=== PATIENT | female | born 1965 | race African-American/Black ===

== ENCOUNTER 2017-12-20 13:29 | Emergency (ER) | payer BC ==
[2017-12-20 13:41] VITALS: BP 185/92; PULSE 64; TEMP 98.5; BMI 36.0
--- NOTE | 2017-12-20 14:44 | PDOC ---
History of Present Illness - General Chief Complaint: Back Pain Stated Complaint: LEG PAIN Time Seen by Provider: 12/20/17 14:30 History Source: Patient Exam Limitations: No Limitations - History of Present Illness Initial Comments: CHIEF COMPLAINT: 52 y/o female c/o right low back pain radiating down right leg x 1 week. 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 She does not recall a specific incident which caused her back to hurt. She denies fall. She hasn't taken anything for the pain. She denies saddle anesthesia, bowel/bladder incontinence, numbness/tingling in LEs. Vital signs on arrival are notable for BP of 185/92. REVIEW OF SYSTEMS: GENERAL/CONSTITUTIONAL: Subjective fever/chills. No weakness. No weight change. HEAD, EYES, EARS, NOSE AND THROAT: No change in vision. No ear pain or discharge. No sore throat. CARDIOVASCULAR: No chest pain or shortness of breath. RESPIRATORY: No cough, wheezing, or hemoptysis. GASTROINTESTINAL: See history of present illness. GENITOURINARY: No dysuria, frequency, or change in urination. MUSCULOSKELETAL: No joint or muscle swelling or pain. No neck or back pain. SKIN: No rash or easy bruising. NEUROLOGIC: No headache, vertigo, loss of consciousness, or loss of sensation. PHYSICAL EXAM: GENERAL: The patient is awake, alert, and fully oriented, in no acute distress. HEAD: Normal with no signs of trauma. ENT: Pupils equal, round and reactive to light, extraocular movements intact, sclera anicteric, conjunctiva clear. Neck supple. LUNGS: Clear to auscultation bilaterally. Normal excursion. No respiratory distress or use of accessory muscles. CV: RRR, S1/S2, no MRG. Cap refill < 2 sec. ABDOMEN: Soft, non-distended, non-tender even to deep palpation, no hepatomegaly or splenomegaly, no masses. BACK: No midline lumbar spine TTP or step offs. Pain with palpation of right gluteal muscles. EXTREMITIES: Normal range of motion, no edema. NEUROLOGICAL: Normal speech, normal gait. CN II-XII grossly intact. No saddle anesthesia. Motor and sensory intact in affected leg. SKIN: Warm, dry, normal turgor, no rashes or lesions noted. Past History - Past Medical History Home Medications: Ambulatory Orders NK [No Known Home Medication] 12/20/17 COPD: No - Immunization History Immunization Up to Date: Yes - Suicide/Smoking/Psychosocial Hx Smoking History: Never smoked Hx Alcohol Use: No Drug/Substance Use Hx: No Substance Use Type: None *Physical Exam - Vital Signs Last Vital Signs Temp Pulse Resp BP Pulse Ox 98.5 F 64 16 185/92 H 99 12/20/17 13:37 12/20/17 13:37 12/20/17 13:37 12/20/17 13:37 12/20/17 13:37 Medical Decision Making - Medical Decision Making A/P: 52 y/o female with right sided sciatica. Will give her IM toradol in the ER. Showed her stretching exercises to perform 5 times per day, suggested motrin, heating pad and massage. The patient verbalizes understanding of all instructions, has no further questions and is awaiting discharge. *DC/Admit/Observation/Transfer Diagnosis at time of Disposition: Low back pain with sciatica Qualifiers: Chronicity: acute Back pain laterality: right Sciatica laterality: sciatica of right side Qualified Code(s): M54.41 - Lumbago with sciatica, right side - Discharge Dispostion Disposition: HOME Condition at time of disposition: Good - Referrals - Patient Instructions Printed Discharge Instructions: DI for Back Pain With Sciatica Additional Instructions: Discharge Instructions: -You have back pain with sciatica -Perform stretching exercises 5 times per day -Apply heating pad and massage affected area -You can take 600mg of over the counter Ibuprofen every 6 hours with food for pain - Post Discharge Activity
[2017-12-20] MEDS ORDERED: KETOROLAC TROMETHAMINE 60 MG/2 ML VIAL IM ONE (15:20)
[2017-12-20] MEDS ORDERED: KETOROLAC TROMETHAMINE 60 MG/2 ML VIAL ONE (15:29)
== END 2017-12-20 15:37 | disposition home or self-care (01) ==
LOC: JERFT 13:29
PROC: 3E0233Z Introduction of Anti-inflammatory into Muscle, Percutaneous Approach (ICD-10-PCS; principal; 2017-12-20)
DX: M54.41 Lumbago with sciatica, right side (principal)
CPT/HCPCS: 99281-25

== ENCOUNTER 2018-01-01 19:00 | Emergency (ER) | payer BC ==
--- NOTE | 2018-01-01 19:07 | PDOC ---
Rapid Medical Evaluation Time Seen by Provider: 01/01/18 19:04 Medical Evaluation: Allergies Allergy/AdvReac Type Severity Reaction Status Date / Time Penicillins Allergy Verified 12/20/17 15:20 01/01/18 19:04 I have performed a brief in-person evaluation of this patient. The patient presents with a chief complaint of: left lower back pain which worsens with flexion of right hip Pertinent physical exam findings: tenderness to left paraspinous muscles. No CVAT I have ordered the following: urine The patient will proceed to the ED for further evaluation. Discharge Disposition - Diagnosis Back pain - Referrals - Patient Instructions - Post Discharge Activity
[2018-01-01 19:17] VITALS: BP 164/84; PULSE 71; TEMP 98; BMI 36.0
--- NOTE | 2018-01-01 19:43 | PDOC ---
History of Present Illness - General Chief Complaint: Back Pain Stated Complaint: LT SIDE PAIN Time Seen by Provider: 01/01/18 19:04 - History of Present Illness Initial Comments: 01/01/18 19:40 52-year-old female without comorbidities presents for evaluation of lower back pain and right leg radicular symptoms. No loss of bowel or bladder function. Radicular symptoms or about the posterior lateral aspect of the right leg to the level of the knee. Past History - Past Medical History Allergies/Adverse Reactions: Allergies Allergy/AdvReac Type Severity Reaction Status Date / Time Penicillins Allergy Verified 01/01/18 19:17 Home Medications: Ambulatory Orders Cyclobenzaprine HCl [Flexeril 10 mg] 10 mg PO HS PRN #10 tablet 01/01/18 Methylprednisolone [Medrol Dose Jayden] 4 mg PO ASDIR #21 tablet 01/01/18 COPD: No - Immunization History Immunization Up to Date: Yes - Suicide/Smoking/Psychosocial Hx Smoking History: Never smoked Have you smoked in the past 12 months: No Information on smoking cessation initiated: No Hx Alcohol Use: No Drug/Substance Use Hx: No Substance Use Type: None Review of Systems - Review of Systems Musculoskeletal: Yes: Back Pain *Physical Exam - Vital Signs Last Vital Signs Temp Pulse Resp BP Pulse Ox 98.0 F 71 17 164/84 100 01/01/18 19:14 01/01/18 19:14 01/01/18 19:14 01/01/18 19:14 01/01/18 19:14 - Physical Exam Comments: 01/01/18 19:41 Lumbar spine range of motion is slightly limited. There is mild right left paralumbar musculature spasm and tenderness. No midline tenderness. 5 out of 5 strength in bilateral lower extremities without gross sensorimotor deficits straight leg raise test negative on the left positive on the right thighs and calves are soft and nontender. She's neurovascularly intact. *DC/Admit/Observation/Transfer Diagnosis at time of Disposition: Back pain, Lumbar radicular pain - Discharge Dispostion Disposition: HOME Condition at time of disposition: Stable Decision to Admit order: No - Prescriptions Prescriptions: Cyclobenzaprine HCl [Flexeril 10 mg] 10 mg PO HS PRN #10 tablet PRN Reason: Muscle Spasms Methylprednisolone [Medrol Dose Jayden] 4 mg PO ASDIR #21 tablet - Referrals Referrals: Juan Oh MD [Staff Physician] - - Patient Instructions Printed Discharge Instructions: Lumbar Radiculopathy, DI for Lumbar Radiculopathy Additional Instructions: Return to the emergency room should symptoms worsen or go unresolved. Please do not take any anti-inflammatory such as Advil Motrin Aleve or ibuprofen. Start the steroid pack in the morning and take as directed the muscle relaxer and given you will make you sleepy it's one tablet before bedtime. Please follow-up with spine surgery in 2-3 days and return to the emergency room should symptoms worsen or go unresolved. Again no anti-inflammatories on the steroid pack if she needs something additional for pain you may take Tylenol as directed - Post Discharge Activity
== END 2018-01-01 19:46 | disposition home or self-care (01) ==
LOC: JERFT 19:00
DX: M54.16 Radiculopathy, lumbar region (principal)
CPT/HCPCS: 99281-25

== ENCOUNTER 2021-07-03 13:33 | Emergency (ER) | payer BC ==
[2021-07-03 14:21] VITALS: BP 146/77; PULSE 81; TEMP 98; BMI 36.0
[2021-07-03] MEDS ORDERED: KETOROLAC TROMETHAMINE 30 MG/1 ML VIAL IM ONE (15:11)
[2021-07-03] MEDS ORDERED: KETOROLAC TROMETHAMINE 30 MG/1 ML VIAL ONE (15:13)
[2021-07-03] MEDS ORDERED: LIDOCAINE 5% TOPICAL PATCH TP ONE (15:52)
[2021-07-03] MEDS ORDERED: LIDOCAINE 5% TOPICAL PATCH ONE (15:53)
[2021-07-03] MEDS ORDERED: LIDOCAINE PATCH REMOVAL MC SCH (22:00)
== END 2021-07-03 15:59 | disposition home or self-care (01) ==
LOC: JERFT 13:33
PROC: 3E0233Z Introduction of Anti-inflammatory into Muscle, Percutaneous Approach (ICD-10-PCS; principal; 2021-07-03)
DX: S83.91XA Sprain of unspecified site of right knee, initial encounter (principal); S16.1XXA Strain of muscle, fascia and tendon at neck level, initial encounter
CPT/HCPCS: 72050-TC-FY; 73562-TC-RT-FY; 99284-25

== ENCOUNTER 2021-11-01 12:34 | Observation (INO) | payer BC ==
[2021-11-01] MEDS ORDERED: amLODIPine BESYLATE 10 MG TABLET (FP) PO ONE (14:08)
[2021-11-01] MEDS ORDERED: FAMOTIDINE 20 MG/50 ML IVPB 20 MG/50 ML MG IVPB ONE ×2 (14:09→15:02)
[2021-11-01] MEDS ORDERED: MAG HYDROX/AL HYDROX/SIMETH 30 ML UNIT-DOSE CUP PO ONE (14:09)
[2021-11-01] MEDS ORDERED: amLODIPine BESYLATE 10 MG TABLET (FP) ONE (15:01)
[2021-11-01] MEDS ORDERED: MAG HYDROX/AL HYDROX/SIMETH 30 ML UNIT-DOSE CUP ONE (15:02)
[2021-11-01 15:09] LABS: BASO % 0.5 % (0-2.0); EOS % 1.9 % (0-4.5); HEMATOCRIT 45.2 % (32.4-45.2); HEMOGLOBIN 15.3 GM/dL (10.7-15.3); LYMPH % 41.9 % (8-40); MCHC 33.8 g/dl (32.0-36.0); MEAN CELL VOLUME 88.8 fl (80-96); MEAN PLT VOLUME 9.5 fl (7.5-11.1); MONO % 6.3 % (3.8-10.2); NEUT % 49.4 % (42.8-82.8); PLATELET COUNT 299 10^3/uL (134-434); RDW 12.9 % (11.6-15.6); WHITE BLOOD COUNT 7.6 K/mm3 (4.0-10.0)
[2021-11-01 15:16] LABS: INR 1.16 (0.83-1.09); PROTHROMBIN TIME (PATIENT) 13.4 SEC (9.7-13.0)
[2021-11-01 15:19] LABS: ACTIVATED PTT 33.6 SECONDS (25.2-36.5)
[2021-11-01 15:37] LABS: BLOOD UREA NITROGEN 11.1 mg/dL (7-18); CALCIUM 9.8 mg/dL (8.5-10.1)
[2021-11-01 15:38] LABS: ALBUMIN 3.6 g/dl (3.4-5.0)
[2021-11-01 15:41] LABS: CREATININE 0.8 mg/dL (0.55-1.3)
[2021-11-01 15:42] LABS: BILIRUBIN,TOTAL 0.6 mg/dL (0.2-1); TOT PROT 7.9 g/dl (6.4-8.2)
[2021-11-01] MEDS ORDERED: ASPIRIN 81 MG CHEWABLE TABLETS PO ONE (15:44)
[2021-11-01 15:45] LABS: N-TERMINAL BNP 36.4 pg/ml (5-125)
[2021-11-01] MEDS ORDERED: ASPIRIN 81 MG CHEWABLE TABLETS ONE (16:01)
[2021-11-01] MEDS ORDERED: NITROGLYCERIN 2% OINTMENT - 1GM PACKET TD ONE ×2 (16:18→17:00)
[2021-11-01] MEDS ORDERED: ACETAMINOPHEN 325 MG TABLET (FP) PO PRN (17:12)
[2021-11-01] MEDS ORDERED: hydrALAZINE HCL 20 MG/ML VIAL IVPUSH ONE (18:28)
[2021-11-01] MEDS ORDERED: hydrALAZINE HCL 20 MG/ML VIAL ONE (18:44)
[2021-11-01] MEDS ORDERED: hydrALAZINE HCL 20 MG/ML VIAL IVPUSH PRN (19:15)
[2021-11-01 23:41] VITALS: BMI 44.7
[2021-11-02 08:23] LABS: HEMATOCRIT 46.2 % (32.4-45.2); HEMOGLOBIN 15.2 GM/dL (10.7-15.3); MCH 29.4 pg (25.7-33.7); MCHC 32.8 g/dl (32.0-36.0); MEAN CELL VOLUME 89.5 fl (80-96); MEAN PLT VOLUME 9.6 fl (7.5-11.1); PLATELET COUNT 295 10^3/uL (134-434); RBC 5.16 M/mm3 (3.60-5.2); WHITE BLOOD COUNT 7.5 K/mm3 (4.0-10.0)
[2021-11-02 08:58] LABS: MAGNESIUM 1.7 mg/dL (1.8-2.4)
[2021-11-02 08:59] LABS: TOT PROT 7.8 g/dl (6.4-8.2)
[2021-11-02 09:00] LABS: CALCIUM 9.9 mg/dL (8.5-10.1); CREATININE 0.8 mg/dL (0.55-1.3)
[2021-11-02 09:04] LABS: BLOOD UREA NITROGEN 12.8 mg/dL (7-18)
[2021-11-02 09:05] LABS: ALBUMIN 3.6 g/dl (3.4-5.0)
[2021-11-02 09:07] LABS: BILIRUBIN,TOTAL 0.9 mg/dL (0.2-1)
[2021-11-02 09:08] LABS: PHOSPHOROUS 4.2 mg/dL (2.5-4.9)
[2021-11-02] MEDS ORDERED: ENOXAPARIN NA (PORCINE) 40 MG/0.4 ML DISP.SYRIN SQ SCH (10:00)
[2021-11-02] MEDS ORDERED: amLODIPine BESYLATE 10 MG TABLET (FP) PO SCH (10:00)
[2021-11-02] MEDS ORDERED: ASPIRIN COATED 81 MG TABLET.EC PO SCH (10:00)
[2021-11-02] MEDS ORDERED: MAGNESIUM OXIDE 400 MG TABLET (FP) PO ONE (11:00)
[2021-11-02 15:13] VITALS: PULSE 70; RESP 18
[2021-11-02 18:24] VITALS: BP 143/65; TEMP 98.7
== END 2021-11-02 18:32 | disposition home or self-care (01) ==
LOC: JER 12:34 → JERBED 16:19 → J4W 20:30
PROVIDERS: ADMIT Internal Medicine; ATTEND Nurse Practitioner Acute Care
PROC: 3E023GC Introduction of Other Therapeutic Substance into Muscle, Percutaneous Approach (ICD-10-PCS; principal; 2021-11-01)
PROC: 3E033GC Introduction of Other Therapeutic Substance into Peripheral Vein, Percutaneous Approach (ICD-10-PCS; 2021-11-01)
DX: E66.01 Morbid (severe) obesity due to excess calories (principal); I10 Essential (primary) hypertension; R07.2 Precordial pain; Z68.41 Body mass index [BMI] 40.0-44.9, adult; R07.9 Chest pain, unspecified; R60.0 Localized edema; R06.02 Shortness of breath; Z29.8 Encounter for other specified prophylactic measures
CPT/HCPCS: 36415; 71046-TC-FY; 76705-TC; 80053; 80061; 83036; 83735; 83880; 84100; 84484; 85025; 85027; 85379; 85610; 85730; 93005; 93010; 93306-TC; 99285-25; C9803-CS; G0378; U0003; U0005